=== PATIENT | female | born 1960 | race Caucasian/White ===

== ENCOUNTER 2019-11-24 11:31 | Emergency (ER) | payer OTHER ==
[~2019-11-24] VITALS: Ht 157.5 cm; Wt 90.9 kg
[~2019-11-24 11:31] MED LIST: ASPI81TA40 PO; BACTDSB PO; CHOL100018 PO; CIPR-278 PO; IBUP-2071 PO; INSLAN SQ; LOSA25TA71 PO; METF-444 PO
[2019-11-24] MEDS ORDERED: INSU3INS10 SQ (11:46)
[2019-11-24 12:29] LABS: BASOPHILS % (AUTO) 0.5 % (0.0-2.0); EOSINOPHILS % (AUTO) 2.3 % (1.0-6.0); HEMATOCRIT 43.7 % (36-46); HEMOGLOBIN 14.6 g/dL (12.0-16.0); LYMPHOCYTES # (AUTO) 1.8 K/uL (1.0-4.8); LYMPHOCYTES % (AUTO) 23.9 % (22.0-44.0); MEAN CORPUSCULAR HEMOGLOBIN 31.6 pg (26.0-34.0); MEAN CORPUSCULAR HGB CONC 33.3 G/dL (31.0-37.0); MEAN CORPUSCULAR VOLUME 95 fL (80-100); MONOCYTES # (AUTO) 0.5 K/uL (0.1-1.0); NEUTROPHILS # (AUTO) 5.2 K/uL (1.8-7.7); NEUTROPHILS % (AUTO) 67.3 % (40.0-70.0); PLATELET COUNT (AUTO) 239 K/uL (150-450); RED CELL DISTRIBUTION WIDTH 13.1 % (11.5-14.5)
[2019-11-24 12:31] LABS: APPEARANCE,URINE CLEAR (CLEAR); BILIRUBIN,URINE NEGATIVE (NEGATIVE); GLUCOSE, URINE (UA) >=1000 mg/dL (NEGATIVE); KETONES,URINE NEGATIVE (NEGATIVE); LEUKOCYTE ESTERASE ,URINE NEGATIVE (NEGATIVE); NITRATE,URINE NEGATIVE (NEGATIVE); OCCULT BLOOD,URINE NEGATIVE (NEGATIVE); PH,URINE 5.5 (5.0-8.0); PROTEIN,URINE SEE CONFIRM (NEGATIVE)
[2019-11-24 12:39] LABS: BACTERIA,URINE None Seen /HPF (None Seen); RBC,URINE None Seen /HPF (0-2); SULFOSALICYLIC ACID,URINE 1+ (Negative); WBC,URINE None Seen /HPF (0-5)
[2019-11-24 12:40] LABS: SQUAMOUS EPITHELIAL CELL,UR Moderate /LPF (None Seen)
[2019-11-24 12:48] LABS: BILIRUBIN,TOTAL 0.6 mg/dL (0.1-1.0); CALCIUM, TOTAL 10.6 mg/dL (8.8-10.5); CREATININE 1.04 mg/dL (0.60-1.30); POTASSIUM 4.9 mmol/L (3.5-5.1); TOTAL PROTEIN, SERUM 8.9 g/dL (6.4-8.2)
[2019-11-24] MEDS ORDERED: CHOL100018 PO (12:58)
[2019-11-24] MEDS ORDERED: ASPI-1111 PO (12:58)
[2019-11-24] MEDS ORDERED: ONDANSETRON HCL 4 MG/2 ML VIAL IVP ONE (13:00)
[2019-11-24] MEDS ORDERED: MORPHINE SULFATE 4 MG/ML SYRINGE IVP ONE ×2 (13:00→14:00)
[2019-11-24] MEDS ORDERED: SODIUM CHLORIDE 0.9% 500 ML IV ONE (13:15)
[2019-11-24] MEDS ORDERED: IOVERSOL 350 MG/ML 100 ML VIAL ONE (14:27)
[2019-11-24] MEDS ORDERED: SODIUM CHLORIDE 0.9% 100 ML ONE (14:27)
[2019-11-24 15:34] LABS: PROTHROMBIN TIME 10.6 SEC (9.4-11.6)
[2019-11-24] MEDS ORDERED: INSULIN REGULAR, HUMAN 100 UNITS/ML SQ ONE ×2 (15:45→17:00)
[2019-11-24 16:14] LABS: GLUCOSE,POINT OF CARE 299 MG/DL (70-110)
[2019-11-24] MEDS ORDERED: HydrOXYzine HCL 50 MG TABLET PO ONE (16:45)
[2019-11-24 17:30] LABS: GLUCOSE,POINT OF CARE 300 MG/DL (70-110)
[2019-11-24 17:40] VITALS: BP 125/77
== END 2019-11-24 17:45 | disposition home or self-care (01) ==
LOC: EMS 11:32
DX: R10.11 Right upper quadrant pain (principal); R07.81 Pleurodynia; R11.0 Nausea; E11.9 Type 2 diabetes mellitus without complications; I10 Essential (primary) hypertension; I25.2 Old myocardial infarction; F17.210 Nicotine dependence, cigarettes, uncomplicated; Z95.0 Presence of cardiac pacemaker; Z88.0 Allergy status to penicillin; Z79.82 Long term (current) use of aspirin
CPT/HCPCS: 36415; 71046; 71275; 76700; 80053; 81001; 82962; 83690; 83880; 84484; 85025; 85379; 85610; 85730; 93005; 93041; 96372; 96374; 96375; 96376; 99285; J1815; J2270; J2405; J7040; J7050; Q9967

== ENCOUNTER → 2020-11-18 | Outpatient (CLI) | payer OTHER ==
[~2020-11-18] MED LIST changes: +ASPI-1444 PO; -ASPI81TA40 PO; -BACTDSB PO; -CHOL100018 PO; +CHOL100044 PO; -CIPR-278 PO; -INSLAN SQ; +INSU3INS10 SQ; +LOSA25TA21 PO; -LOSA25TA71 PO
== END | disposition home or self-care (01) ==
LOC: RADMN 09:00
PROVIDERS: ATTEND Internal Medicine Critical Care Medicine
DX: J98.4 Other disorders of lung (principal); I25.10 Atherosclerotic heart disease of native coronary artery without angina pectoris; I70.0 Atherosclerosis of aorta; R91.8 Other nonspecific abnormal finding of lung field
CPT/HCPCS: 71250